=== PATIENT | female | born 1975 | race Two or more races ===

== ENCOUNTER 2018-02-10 19:16 | Emergency (ER) | payer SELFPAY ==
[2018-02-10] MEDS ORDERED: Benzocaine 20% Topical Spray UD MUCMEM ONE (20:01)
[2018-02-10] MEDS ORDERED: Lidocaine 2% Viscous Solution 15 ML Cup PO ONE (20:01)
--- NOTE | 2018-02-10 20:06 | EDM.PDOC ---
ED HPI GENERAL MEDICAL PROBLEM - General Chief Complaint: ENT Problem Stated Complaint: RIGHT SIDE FACIAL SWELLING Time Seen by Provider: 02/10/18 19:50 - History of Present Illness INITIAL COMMENTS - FREE TEXT/NARRATIVE: HISTORY AND PHYSICAL: History of present illness: Patient is a 42-year-old female who presents to the emergency room with complaints of right upper and lower dental pain. Strict 2 years she has been needing to get both posterior molars extracted as they have caused multiple abscesses due to the tooth being "broken". She states that normally when she feels discomfort she does take a prescription for penicillin and/or clindamycin. She states this usually "helps for a couple of months" and then "comes back". She reports that she has called "all the dentists in town" but is unable to get anyone to extract her teeth. She reports she does plan on returning home to [place] and will call her local dentist. Review of systems: As per history of present illness and below otherwise all systems reviewed and negative. Past medical history: As per history of present illness and as reviewed below otherwise noncontributory. Surgical history: As per history of present illness and as reviewed below otherwise noncontributory. Social history: No reported history of drug or alcohol abuse. Family history: As per history of present illness and as reviewed below otherwise noncontributory. Physical exam: General: Well-developed and well-nourished 42-year-old female. Alert and oriented. Nontoxic appearing and in no acute distress. HEENT: Atraumatic, normocephalic, pupils equal and reactive bilaterally, negative for conjunctival pallor or scleral icterus, mucous membranes moist, throat clear, neck supple, nontender, trachea midline. Heart dental hygiene noted with gumline swelling along tooth #30 through 31 and 3-1 (right upper/ lower) with decay noted. No drooling or trismus noted. No meningeal signs Lungs: Clear to auscultation, breath sounds equal bilaterally, chest nontender. Heart: S1S2, regular rate and rhythm without overt murmur Abdomen: Soft, nondistended, nontender. Negative for masses. Pelvis: Stable nontender. Genitourinary: Deferred. Rectal: Deferred. Skin: Intact, warm, dry. No lesions or rashes noted. Extremities: Atraumatic, negative for cords or calf pain. Neurovascular unremarkable. Neuro: Awake, alert, oriented. Cranial nerves II through XII unremarkable. Cerebellum unremarkable. Motor and sensory unremarkable throughout. Exam nonfocal. Notes: Script for Nadege (#15) and PCN. Encouraged her to follow-up with the dentist for definitive care. She voices understanding and is agreeable to plan of care. She denies any further questions at this time. Diagnostics: NA Therapeutics: Dental Balls Impression: Dental Abscess Plan: 1. Please take the antibiotic as directed. 2. Tylenol and/or ibuprofen as needed for pain management. [place] has been prescribed for moderate to severe pain. This medication may cause drowsiness so do not take it while driving or needing to be functioning outside the house. 3. As we discussed please follow-up with a dentist for definitive care. Return to the ED as needed and as discussed. Definitive disposition and diagnosis as appropriate pending reevaluation and review of above. Right Face Pain Score (Numeric/FACES): 7 - Related Data Allergies Allergy/AdvReac Type Severity Reaction Status Date / Time No Known Allergies Allergy Verified 02/10/18 19:39 Home Meds: Home Meds Clindamycin HCl 300 mg TID 02/10/18 [History] Past Medical History Other Genitourinary History: left kidney surgery [employer] History: Reports: - Past Surgical History HEENT Surgical History: Reports: Oral Surgery GI Surgical History: Reports: Cholecystectomy Female Surgical History: Reports: Tubal Ligation Social & Family History - Family History Family Medical History: Noncontributory - Tobacco Use Smoking Status *Q: Never Smoker Second Hand Smoke Exposure: Yes - Caffeine Use Caffeine Use: Reports: None - Recreational Drug Use Recreational Drug Use: No ED ROS ENT - Review of Systems Review Of Systems: ROS reveals no pertinent complaints other than HPI. ED EXAM, ENT - Physical Exam Exam: See Below (See dictation) Course - Vital Signs Last Recorded V/S: Last Vital Signs Temp 98.3 F 02/10/18 19:35 Pulse 96 02/10/18 19:35 Resp 18 02/10/18 19:35 BP 125/80 02/10/18 19:35 Pulse Ox 99 02/10/18 19:35 - Orders/Labs/Meds Meds: Medications Discontinued Medications Generic Name Dose Route Start Last Admin Trade Name Freq PRN Reason Stop Dose Admin Benzocaine 2 each 02/10/18 20:01 Hurricaine One 20% MUCMEM 02/10/18 20:02 ONETIME ONE Lidocaine HCl 15 ml 02/10/18 20:01 Xylocaine 2% Viscous PO 02/10/18 20:02 ONETIME ONE Departure - Departure Time of Disposition: 20:05 Disposition: Home, Self-Care 01 Clinical Impression: Dental abscess - Discharge Information Instructions: Skin Abscess, [id number] Referrals: PCP,None [Primary Care Provider] - Forms: ED Department Discharge Additional Instructions: The following information is given to patients seen in the emergency department who are being discharged to home. This information is to outline your options for follow-up care. We provide all patients seen in our emergency department with a follow-up referral. The need for follow-up, as well as the timing and circumstances, are variable depending upon the specifics of your emergency department visit. If you don't have a primary care physician on staff, we will provide you with a referral. We always advise you to contact your personal physician following an emergency department visit to inform them of the circumstance of the visit and for follow-up with them and/or the need for any referrals to a consulting specialist. The emergency department will also refer you to a specialist when appropriate. This referral assures that you have the opportunity for follow-up care with a specialist. All of these measure are taken in an effort to provide you with optimal care, which includes your follow-up. Under all circumstances we always encourage you to contact your private physician who remains a resource for coordinating your care. When calling for follow-up care, please make the office aware that this follow-up is from your recent emergency room visit. If for any reason you are refused follow-up, please contact the [facility] Emergency Department at and asked to speak to the emergency department charge nurse. [facility] [address] [place] [id number] 1. Please take the antibiotic as directed. 2. Tylenol and/or ibuprofen as needed for pain management. [place] has been prescribed for moderate to severe pain. This medication may cause drowsiness so do not take it while driving or needing to be functioning outside the house. 3. As we discussed please follow-up with a dentist for definitive care. Return to the ED as needed and as discussed.
== END 2018-02-10 20:16 | disposition home or self-care (01) ==
LOC: MW.ED 19:16
DX: K04.7 Periapical abscess without sinus (principal); Z77.22 Contact with and (suspected) exposure to environmental tobacco smoke (acute) (chronic)
CPT/HCPCS: 99282

== ENCOUNTER 2018-03-06 16:44 | Emergency (ER) | payer SELFPAY ==
[2018-03-06] MEDS ORDERED: Albuterol/Ipratropium 3.0-0.5 MG/3 ML Neb Soln NEB ONE (16:47)
--- NOTE | 2018-03-06 16:51 | EDM.PDOC ---
ED HPI GENERAL MEDICAL PROBLEM - General Chief Complaint: Asthma Stated Complaint: SOB Time Seen by Provider: 03/06/18 16:45 Source of Information: Reports: Patient History Limitations: Reports: No Limitations - History of Present Illness INITIAL COMMENTS - FREE TEXT/NARRATIVE: History of present illness: []Patient has a history of asthma and has been coughing for 3 days ran out of her inhaler. She complains of chest pain, sore throat, loss of voice and shortness of breath. Review of systems: As per history of present illness and below otherwise all systems reviewed and negative. Past medical history: As per history of present illness and as reviewed below otherwise noncontributory. Surgical history: As per history of present illness and as reviewed below otherwise noncontributory. Social history: No reported history of drug or alcohol abuse. Family history: As per history of present illness and as reviewed below otherwise noncontributory. Physical exam: General: Well developed, well nourished in NAD HEENT: Atraumatic, normocephalic, pupils reactive, negative for conjunctival pallor or scleral icterus, mucous membranes moist, throat clear, neck supple, nontender, trachea midline. Lungs: Clear to auscultation, breath sounds equal bilaterally, chest nontender. No wheezing but extremely poor effort Heart: S1S2, regular, negative for clicks, rubs, or JVD. Abdomen: Soft, nondistended, nontender. Negative for masses or hepatosplenomegaly. Negative for costovertebral tenderness. Pelvis: Stable nontender. Genitourinary: Deferred. Rectal: Deferred. Extremities: Atraumatic, negative for cords or calf pain. Neurovascular unremarkable. Neuro: Awake, alert, oriented. Cranial nerves II through XII unremarkable. Cerebellum unremarkable. Motor and sensory unremarkable throughout. Exam nonfocal. Diagnostics: []Chest x-ray shows no pneumonia Therapeutics: []DuoNeb with marked improvement Impression: []Asthmatic bronchitis Plan: []Albuterol and amoxicillin as directed follow-up with primary care return if symptoms worsen or change Definitive disposition and diagnosis as appropriate pending reevaluation and review of above. lungs Pain Score (Numeric/FACES): 7 - Related Data Allergies Allergy/AdvReac Type Severity Reaction Status Date / Time No Known Allergies Allergy Verified 03/06/18 16:48 Home Meds: Home Meds Albuterol [Ventolin HFA] 2 puff INH Q4HR PRN #1 inhaler 03/06/18 [Rx] Amoxicillin 500 mg PO TID #21 capsule 03/06/18 [Rx] Past Medical History Other Genitourinary History: left kidney surgery [employer] History: Reports: - Past Surgical History HEENT Surgical History: Reports: Oral Surgery GI Surgical History: Reports: Cholecystectomy Female Surgical History: Reports: Tubal Ligation Social & Family History - Family History Family Medical History: Noncontributory - Caffeine Use Caffeine Use: Reports: None ED ROS GENERAL - Review of Systems Review Of Systems: See Below (See history of present illness) ED EXAM, GENERAL - Physical Exam Exam: See Below (See history of present illness) Course - Vital Signs Last Recorded V/S: Last Vital Signs Temp 96.7 F 03/06/18 16:49 Pulse 104 H 03/06/18 16:49 Resp 18 03/06/18 16:49 BP 171/56 H 03/06/18 16:49 Pulse Ox 98 03/06/18 16:49 - Orders/Labs/Meds Orders: Active Orders 24 hr Category Date Time Status EKG Documentation Completion [RC] STAT Care 03/06/18 16:59 Active RT Aerosol Therapy [RC] ASDIRECTED Care 03/06/18 16:47 Active Chest 1V Frontal [CR] Stat Exams 03/06/18 16:59 Taken Meds: Medications Discontinued Medications Generic Name Dose Route Start Last Admin Trade Name Freq PRN Reason Stop Dose Admin Albuterol/Ipratropium 3 ml 03/06/18 16:47 03/06/18 16:56 Duoneb 3.0-0.5 Mg/3 Ml NEB 03/06/18 16:48 3 ml ONETIME ONE Administration Departure - Departure Time of Disposition: 17:17 Disposition: Home, Self-Care 01 Condition: Good Clinical Impression: Acute asthmatic bronchitis - Discharge Information Prescriptions: Albuterol [Ventolin HFA] 2 puff INH Q4HR PRN #1 inhaler PRN Reason: Shortness Of Breath Amoxicillin 500 mg PO TID #21 capsule Forms: ED Department Discharge Additional Instructions: The following information is given to patients seen in the emergency department who are being discharged to home. This information is to outline your options for follow-up care. We provide all patients seen in our emergency department with a follow-up referral. The need for follow-up, as well as the timing and circumstances, are variable depending upon the specifics of your emergency department visit. If you don't have a primary care physician on staff, we will provide you with a referral. We always advise you to contact your personal physician following an emergency department visit to inform them of the circumstance of the visit and for follow-up with them and/or the need for any referrals to a consulting specialist. The emergency department will also refer you to a specialist when appropriate. This referral assures that you have the opportunity for follow-up care with a specialist. All of these measure are taken in an effort to provide you with optimal care, which includes your follow-up. Under all circumstances we always encourage you to contact your private physician who remains a resource for coordinating your care. When calling for follow-up care, please make the office aware that this follow-up is from your recent emergency room visit. If for any reason you are refused follow-up, please contact the [facility] Emergency Department at and asked to speak to the emergency department charge nurse. Take albuterol as directed use amoxicillin until gone as directed follow-up with primary care return if symptoms worsen or change. [facility] [address] [place] [id number] - My Orders Last 24 Hours: My Active Orders 03/06/18 16:47 RT Aerosol Therapy [RC] ASDIRECTED 03/06/18 16:59 EKG Documentation Completion [RC] STAT Chest 1V Frontal [CR] Stat - Assessment/Plan Last 24 Hours: My Active Orders 03/06/18 16:47 RT Aerosol Therapy [RC] ASDIRECTED 03/06/18 16:59 EKG Documentation Completion [RC] STAT Chest 1V Frontal [CR] Stat
--- NOTE | 2018-03-07 16:24 | CR ---
EXAM DATE: 03/06/18 PATIENT'S AGE: 42 Patient: JENSEN CHAMPAGNE Facility: [place], [place] Site . Site : [id number] Study: XRay Chest [id number]/24/2018 5:14:57 PM Ordering Physician: Vern Moreau Final Report: INDICATION: Cough, shortness of breath. COMPARISON: none TECHNIQUE: Portable AP semi-erect chest performed at 5:14 p.m. FINDINGS: The lungs are clear. There is no evidence pneumothorax. The heart, mediastinum and pulmonary vessels are of normal size. There is no evidence of pleural fluid. IMPRESSION: Negative chest. Dictated by Regan Monroy MD @ Mar 06 2018 5:21PM (Electronic Signature) Report Signed by Proxy. ROBERT
== END 2018-03-06 17:34 | disposition home or self-care (01) ==
LOC: MW.ED 16:44
DX: J45.909 Unspecified asthma, uncomplicated (principal); Z79.899 Other long term (current) drug therapy
CPT/HCPCS: 71045; 71045-26; 93005; 94640; 99283; 99285-25